=== PATIENT | male | born 1995 | race Native Hawaiian/Other Pacific Islander ===

== ENCOUNTER 2019-01-14 19:00 | Emergency (ER) | payer MEDICAID ==
[2019-01-14 19:10] VITALS: BMI 23.8
[2019-01-14 19:18] VITALS: RESP 16; TEMP 98.3
[2019-01-14 19:24] VITALS: BP 103/67; PULSE 67; O2SAT 100
[2019-01-14] MEDS ORDERED: TDAP Vaccine 0.5 mL Syr IM ONE (19:36)
--- NOTE | 2019-01-14 19:40 | ED PDOC ---
Arrival/HPI - General Chief Complaint: Abnormal Skin Integrity Time Seen by Provider: 01/14/19 19:16 Historian: Patient - History of Present Illness Narrative History of Present Illness (Text): 01/14/19 19:37 23-year-old male sustained a laceration to his left hand by the thumb when he was trying to open a can prior to arrival. Patient states that he felt a little lightheaded and his vision went dark when he stopped the blood however did not pass out. Patient states that he feels significantly better now, reports no dizziness, chest pain, palpitations, shortness of breath, headache. Patient also denies any numbness, decrease in range of motion or any other injury. Past Medical History - Psychiatric Hx Substance Use: No Family/Social History Family/Social History: No Known Family HX Smoking Status: Never Smoked Hx Alcohol Use: No Hx Substance Use: No Allergies/Home Meds Allergies/Adverse Reactions: Allergies No Known Allergies Allergy (Verified 01/14/19 19:10) Home Medications: Home Meds Medication Instructions Recorded Confirmed No Known Home Med 01/14/19 01/14/19 Review of Systems - Review of Systems Constitutional: absent: Fatigue, Fevers Respiratory: absent: SOB, Cough Cardiovascular: absent: Chest Pain, Palpitations Skin: Laceration. absent: Rash, Skin Lesions Neurological: Dizziness. absent: Headache Physical Exam Vital Signs Temp Pulse Resp BP Pulse Ox 01/14/19 19:24 67 16 103/67 100 01/14/19 19:15 98.3 F 69 16 90/64 L 98 Temperature: Afebrile Blood Pressure: Normal Pulse: Regular Respiratory Rate: Normal Appearance: Positive for: Well-Appearing, Non-Toxic, Comfortable Pain Distress: None Mental Status: Positive for: Alert and Oriented X 3 - Systems Exam Upper Extremity: Present: Normal ROM, NORMAL PULSES, Neurovascularly Intact, Capillary Refill < 2s, Norm 2-Pt Discrimination, Other (+<1 cm laceration to the dorsal aspect of the L hand over the 1st metacarpal). No: Tenderness, Swelling, Erythema, Temperature Abnormalties Lower Extremity: Present: Normal Inspection. No: Edema Neurological: Present: GCS=15, CN II-XII Intact, Speech Normal, Motor Func Grossly Intact Skin: Present: Warm, Dry, Normal Color. No: Rashes Psychiatric: Present: Alert, Oriented x 3, Normal Insight, Normal Concentration Medical Decision Making ED Course and Treatment: 01/14/19 19:40 Plan : - Tdap IM - Dermabond Laceration repaired with Dermabond, clean dressing applied. Advised to follow up with primary care physician or the clinic in 1-2 days without fail. Return to the emergency room at any time for any new or worsening symptoms. Patient states he fully agrees with and understands discharge instructions. States that he agrees with the plan and disposition. Verbalized and repeated discharge instructions and plan. I have given the patient opportunity to ask any additional questions. - Medication Orders Current Medication Orders: Tetanus/Reduced Diphtheria/Acell Pertussis (Boostrix Vaccine Inj) 0.5 ml IM .ONCE ONE Stop: 01/14/19 19:37 Procedure: Wound Repair - Time Performed Time Performed: 19:40 - Time Out Time Out: Side verified, Site verified, Patient ID confirmed - Consent Obtained Consent obtained: Verbal - Performed by Performed by: Mid-level Provider - Indications Indication(s):: Laceration - Location Location:: Left, Hand Shape:: Linear Dimensions Length cm: 0.5 Depth:: Epidermis - Debris Debris:: None - Complexity Complexity:: Simple (one layer) (using dermabond) - Wound repair method [place]:: Tissue glue - Patient tolerated procedure Patient Tolerated Procedure:: Well - PA / ASSISTANT AUDITOR / Resident Statement /DO has reviewed & agrees with the documentation as recorded. Disposition/Present on Arrival - Present on Arrival Any Indicators Present on Arrival: No History of DVT/PE: No History of Uncontrolled Diabetes: No Urinary Catheter: No History of Decub. Ulcer: No History Surgical Site Infection Following: None - Disposition Have Diagnosis and Disposition been Completed?: Yes Diagnosis: Laceration of left hand Disposition: HOME/ ROUTINE Disposition Time: 19:45 Patient Plan: Discharge Condition: STABLE Discharge Instructions (ExitCare): Laceration Repair With Glue (DC), Wound Care (DC) Additional Instructions: Thank you for letting us take care of you today. You were treated for left hand laceration. The emergency medical care you received today was directed at your acute symptoms. Return to the Emergency Department if your symptoms worsen, do not improve, or if you have any other problems. Please contact your doctor in 2 days for re-evaluation and follow up / or call one of the physicians/clinics you have been referred to that are listed on the Patient Visit Information form that is included in your discharge packet. Bring any paperwork you were given at discharge with you along with any medications you are taking to your follow up visit. Our treatment cannot replace ongoing medical care by a primary care provider (PCP) outside of the emergency department. Thank you for allowing the [facility] team to be part of your care today. Referrals: [facility] [place] - Follow up with primary Forms: [employer] (Pashto), WORK NOTE, SCHOOL NOTE
== END 2019-01-14 20:13 | disposition home or self-care (01) ==
LOC: ED 19:00
DX: S61.412A Laceration without foreign body of left hand, initial encounter (principal); W26.8XXA Contact with other sharp object(s), not elsewhere classified, initial encounter; Z23 Encounter for immunization